=== PATIENT | female | born 1970 | race Caucasian/White ===

== ENCOUNTER 2024-06-15 14:23 | Outpatient (AMB) | payer BC, SELFPAY ==
[2024-06-15 14:43] VITALS: BP 141/88; PULSE 67; RESP 18; TEMP 35.8; O2SAT 96; BMI 43.8
--- NOTE | 2024-06-15 14:43 | PD.ORTHCLVIS ---
Vital signs 06/15/24 14:43 Height 1.63 m Height Method Stated Weight 115.751 kg Weight Measurement Method Standing Scale BMI 43.8 BP 141/88 H Blood Pressure Source Automatic Cuff Blood Pressure Location Right Upper Arm Position Sitting Respiration 18 Pulse 67 Pulse Source Monitor Temp 96.5 F L Temp Source Temporal Artery Scan Pulse Oximetry (%) 96 Oxygen Delivery Method Room Air Med/Allergies Allergies & Medications Allergies Penicillins Allergy (Unknown, Verified 06/15/24 14:46) amoxicillin Allergy (Verified 06/15/24 14:46) Medication Reconciliation levothyroxine 125 mcg capsule 125 mcg PO QDAY 06/15/24 [History Confirmed 06/15/24] meloxicam 7.5 mg tablet 7.5 mg PO QDAY #45 tabs 06/15/24 [Rx] Subjective Visit Visit for: new patient and knee (RIGHT) Immunization / Flu Flu Vaccine in the Last 12 Months: No Flu Vaccine Exclusion Criteria: No Exclusion Criteria History of Present Illness Chief complaint: RIGHT KNEE PAIN Date of injury / onset of symptoms: 1 YEAR Nusrat is a pleasant 53-year-old female with bilateral knee pain. She had a history of ACL repair over 16 years ago. She reports bilateral knee pain worse on the left actually. She has tried Anti-inflammatories. 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 Exam Exam Patient is in no acute distress and is cooperative with the examination today. Breathing is nonlabored. In no respiratory distress. Bilateral extremities were evaluated and demonstrates sensation intact to light touch. Palpable pedal pulses are present. No significant edema is present. Bilateral hips were examined. The patient has no pain with log roll of the hips. Internal rotation to 30 degrees and external rotation to 30 degrees is painless. Negative FADIR. The left knee was examined. The left knee is in [varus] alignment. Range of motion from [0-115] degrees. Knee is stable to varus and valgus as well as AP translation with <5mm. Patient has a [negative] McMurrays. There is [no] pain with patellofemoral compression and [no] crepitus noted. The knee is [tender] to palpation [medially]. The right knee was also examined. The right knee is in [varus] alignment. Range of motion from [0-120] degrees. Knee is stable to varus and valgus as well as AP translation with <5mm. Patient has a [negative] McMurrays. There is [no] pain with patellofemoral compression and [no] crepitus noted. The knee is [tender] to palpation [medially]. Bilateral knee x-rays demonstrate varus arthritis. It is of mild severity and is nonweightbearing Assessment and Plan Problem List (1) Degenerative arthritis of knee, bilateral: Status: Acute Plan: 53-year-old female with bilateral knee pain and likely bilateral knee arthritis. I would like to get weightbearing x-rays to better assess the severity. She has not had significant conservative treatment we can try anti-inflammatories or injections at the next visit. We will do a phone call to discuss the severity of her condition and different treatment options Office Procedures GNS Level of Care Nursing/Assessment Patient Status: Initial/New Patient Nursing Assessment/Reassesment: Medication Reconciliation, Update PMH in EMR and Vital Signs Coordination of Care: Complex Care and Chronic Disease 1-5, Education Complex Pt/Fam, Consent,records obtained, informed consent, 1 Ins Authorization, Lab and Imaging orders, Results/Orders obtained and Staff clarify orders New Patient Charge New Patient Point Assignment: 1124 New Patient Point Charge: RADIOLOGY SUPERVISOR Level 4 ([id number]) Past Medical History Past Medical History Have you ever been diagnosed with any of the following: Respiratory Problems Smoking: No Smoking Exposure: No
== END 2024-06-15 15:13 | disposition home or self-care (01) ==
LOC: HODSRG 14:23
PROVIDERS: PCP Family Medicine; Referring Provider Family Medicine; Supervising Provider Orthopaedic Surgery Adult Reconstructive Orthopaedic Surgery; Visit Provider Orthopaedic Surgery Adult Reconstructive Orthopaedic Surgery
DX: M17.0 Bilateral primary osteoarthritis of knee (principal); M25.562 Pain in left knee; M25.561 Pain in right knee
CPT/HCPCS: 99204; G0463

== ENCOUNTER 2024-07-02 15:24 | Outpatient (AMB) | payer BC, SELFPAY ==
--- NOTE | 2024-07-02 15:10 | PD.ORTHTELE ---
Med/Allergies Allergies & Medications Allergies Penicillins Allergy (Unknown, Verified 07/02/24 15:11) amoxicillin Allergy (Verified 07/02/24 15:11) Medication Reconciliation levothyroxine 125 mcg capsule 125 mcg PO QDAY 06/15/24 [History Confirmed 07/02/24] meloxicam 7.5 mg tablet 7.5 mg PO QDAY #45 tabs 06/15/24 [Rx Confirmed 07/02/24] Subjective Visit Visit for: follow up visit, knee and x-rays Immunization / Flu Flu Vaccine in the Last 12 Months: No Flu Vaccine Exclusion Criteria: No Exclusion Criteria History of Present Illness Chief complaint: TELEMED VISIT XRAYS Date of injury / onset of symptoms: 1 YEAR Nusrat is a pleasant 53-year-old female with bilateral knee pain. She had a history of ACL repair over 16 years ago. She reports bilateral knee pain worse on the left actually. She has tried Anti-inflammatories. 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 Assessment and Plan Problem List (1) Degenerative arthritis of knee, bilateral: Status: Acute Plan: 53-year-old female with bilateral knee pain and likely bilateral knee arthritis. I would like to get weightbearing x-rays to better assess the severity. She has not had significant conservative treatment. She has significant arthritis of both knees We thus discussed anti-inflammatories as well as cortisone injections. We would plan for cortisone injections at the next visit Office Procedures GNS Level of Care Nursing/Assessment Patient Status: Established Patient Nursing Assessment/Reassesment: Medication Reconciliation, Update PMH in EMR and Vital Signs Coordination of Care: Complex Care and Chronic Disease 1-5, Education Complex Pt/Fam, Consent,records obtained, informed consent, Results/Orders obtained and Staff clarify orders Established Patient Charge Established Patient Point Assignment: 95 Telehealth Telemed Phone/Video with patient at home & Dr,PA,APPLIED BEHAVIOR SCIENCE SPECIALIST: Yes
== END 2024-07-02 15:30 | disposition home or self-care (01) ==
LOC: HODSRG 15:24
PROVIDERS: PCP Family Medicine; Referring Provider Family Medicine; Supervising Provider Orthopaedic Surgery Adult Reconstructive Orthopaedic Surgery; Visit Provider Orthopaedic Surgery Adult Reconstructive Orthopaedic Surgery
DX: M17.0 Bilateral primary osteoarthritis of knee (principal); M25.562 Pain in left knee; M25.561 Pain in right knee
CPT/HCPCS: 99212; G0463

== ENCOUNTER 2024-07-13 14:54 | Outpatient (AMB) | payer BC, SELFPAY ==
[2024-07-13 15:22] VITALS: BP 140/82; PULSE 95; RESP 18; TEMP 36.3; O2SAT 93; BMI 43.0
--- NOTE | 2024-07-13 15:22 | PD.ORTHCLVIS ---
Vital signs 07/13/24 15:22 Height 1.63 m Height Method Stated Weight 114.362 kg Weight Measurement Method Standing Scale BMI 43.0 BP 140/82 H Blood Pressure Source Automatic Cuff Blood Pressure Location Left Upper Arm Position Sitting Respiration 18 Pulse 95 Pulse Source Monitor Temp 97.4 F Temp Source Temporal Artery Scan Pulse Oximetry (%) 93 L Oxygen Delivery Method Room Air Med/Allergies Allergies & Medications Allergies Penicillins Allergy (Unknown, Verified 07/02/24 15:11) amoxicillin Allergy (Verified 07/02/24 15:11) Subjective Visit Visit for: follow up visit, knee and injections Immunization / Flu Flu Vaccine in the Last 12 Months: No Flu Vaccine Exclusion Criteria: Refused by Patient History of Present Illness Chief complaint: TELEMED VISIT XRAYS Date of injury / onset of symptoms: 1 YEAR Nusrat is a pleasant 53-year-old female with bilateral knee pain. She had a history of ACL repair over 16 years ago. She reports bilateral knee pain worse on the left actually. She has tried Anti-inflammatories. 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 Exam Exam Patient is in no acute distress and is cooperative with the examination today. Breathing is nonlabored. In no respiratory distress. Bilateral extremities were evaluated and demonstrates sensation intact to light touch. Palpable pedal pulses are present. No significant edema is present. Bilateral hips were examined. The patient has no pain with log roll of the hips. Internal rotation to 30 degrees and external rotation to 30 degrees is painless. Negative FADIR. The left knee was examined. The left knee is in [varus] alignment. Range of motion from [0-115] degrees. Knee is stable to varus and valgus as well as AP translation with <5mm. Patient has a [negative] McMurrays. There is [no] pain with patellofemoral compression and [no] crepitus noted. The knee is [tender] to palpation [medially]. The right knee was also examined. The right knee is in [varus] alignment. Range of motion from [0-120] degrees. Knee is stable to varus and valgus as well as AP translation with <5mm. Patient has a [negative] McMurrays. There is [no] pain with patellofemoral compression and [no] crepitus noted. The knee is [tender] to palpation [medially]. Bilateral knee x-rays demonstrate varus arthritis. It is of mild severity and is nonweightbearing Assessment and Plan Problem List (1) Degenerative arthritis of knee, bilateral: Status: Acute Plan: 53-year-old female with bilateral knee pain and likely bilateral knee arthritis. I would like to get weightbearing x-rays to better assess the severity. She has not had significant conservative treatment. She has significant arthritis of both knees Recommend knee cortisone injections as patient would like to proceed with conservative treatment at this time. The risks and benefits of the procedure were reviewed with the patient and patient gave verbal consent to continue with the procedure. Procedure: performed by Dr. García Using sterile technique the Bilateral knees were thoroughly prepped with alcohol, and approximately 1 cc of Kenalog 40 mg/mL and 4 cc of 1% lidocaine was injected into each knee without resistance into the medial tibial femoral joint space. The patient tolerated the procedure. Office Procedures GNS Level of Care Nursing/Assessment Patient Status: Established Patient Nursing Assessment/Reassesment: Medication Reconciliation, Update PMH in EMR and Vital Signs Coordination of Care: Complex Care and Chronic Disease 1-5, Education Complex Pt/Fam, Consent,records obtained, informed consent, Results/Orders obtained and Staff clarify orders Established Patient Charge Established Patient Point Assignment: 95 Established Patient Point Charge: EP Level 3 (80-115) Surgical Proc/IM SQ injection Major Surgical Procedure: Yes (knee injection) Medication Given Medication Given Medication Given: Yes Documented Dose Given: 8 Route: Infiitration Medication Given Medication Given Medication Given: Yes Documented Dose Given: 2 Route: Infiitration Office Meds Xylocaine 10 mg/mL (1 %) injection solution Performing Provider: Dao García MD Performing Location: [facility] Administered by: Dao García MD on 07/13/24 15:36 Dose Route Admin Location Dispensed Lot Number Expiration Date [facility] Horticultural Farmworker 40 mL Infiltration 40 mL [id number] [employer] triamcinolone acetonide 40 mg/mL suspension for injection Performing Provider: Dao García MD Performing Location: [facility] Administered by: Dao García MD on 07/13/24 15:36 Dose Route Admin Location Dispensed Lot Number Expiration Date [facility] Horticultural Farmworker 80 mg intra-articular 2 mL [id number] [employer] Past Medical History Past Medical History Have you ever been diagnosed with any of the following: Respiratory Problems Smoking: No Smoking Exposure: No
== END 2024-07-13 15:43 | disposition home or self-care (01) ==
LOC: HODSRG 14:54
PROVIDERS: PCP Family Medicine; Referring Provider Family Medicine; Supervising Provider Orthopaedic Surgery Adult Reconstructive Orthopaedic Surgery; Visit Provider Orthopaedic Surgery Adult Reconstructive Orthopaedic Surgery
DX: M17.0 Bilateral primary osteoarthritis of knee (principal); M25.562 Pain in left knee; M25.561 Pain in right knee
CPT/HCPCS: 20610; 99213; J3301; J3490; G0463

== ENCOUNTER 2025-06-14 12:55 | Outpatient (AMB) | payer BC, SELFPAY ==
--- NOTE | 2025-06-14 13:18 | ORTHONT_ITS ---
Vital signs 06/14/25 13:19 Height 1.63 m Height Method Stated Weight 116.375 kg Weight Measurement Method Standing Scale BMI 43.8 BP 134/88 H Blood Pressure Source Automatic Cuff Blood Pressure Location Left Upper Arm Position Sitting Respiration 19 Pulse 73 Pulse Source Monitor Temp 98.0 F Temp Source Temporal Artery Scan Pulse Oximetry (%) 96 Oxygen Delivery Method Room Air Med/Allergies Allergies & Medications Allergies Penicillins Allergy (Unknown, Verified 06/14/25 13:19) amoxicillin Allergy (Verified 06/14/25 13:19) Medication Reconciliation levothyroxine 125 mcg capsule 125 mcg PO QDAY 06/15/24 [History Confirmed 06/14/25] meloxicam 7.5 mg tablet 7.5 mg PO QDAY #45 tabs 06/15/24 [Rx Confirmed 06/14/25] Exam Exam Patient is in no acute distress and is cooperative with the examination today. Breathing is nonlabored. In no respiratory distress. Bilateral extremities were evaluated and demonstrates sensation intact to light touch. Palpable pedal pulses are present. No significant edema is present. Bilateral hips were examined. The patient has no pain with log roll of the hips. Internal rotation to 30 degrees and external rotation to 30 degrees is painless. Negative FADIR. The left knee was examined. The left knee is in [varus] alignment. Range of motion from [0-115] degrees. Knee is stable to varus and valgus as well as AP translation with <5mm. Patient has a [negative] McMurrays. There is [no] pain with patellofemoral compression and [no] crepitus noted. The knee is [tender] to palpation [medially]. The right knee was also examined. The right knee is in [varus] alignment. Range of motion from [0-120] degrees. Knee is stable to varus and valgus as well as AP translation with <5mm. Patient has a [negative] McMurrays. There is [no] pain with patellofemoral compression and [no] crepitus noted. The knee is [tender] to palpation [medially]. Bilateral knee x-rays demonstrate varus arthritis. It is of mild severity and is nonweightbearing Assessment and Plan Problem List (1) Degenerative arthritis of knee, bilateral: Status: Acute Plan: 53-year-old female with bilateral knee pain and likely bilateral knee arthritis. Recommend knee cortisone injection as patient would like to proceed with conservative treatment at this time. The risks and benefits of the procedure were reviewed with the patient and patient gave verbal consent to continue with the procedure. Procedure: performed by Dr. García Using sterile technique the Right knee was thoroughly prepped with alcohol, and approximately 1 cc of Depo-Medrol 80mg/mL and 4 cc of 0.2% ropivacaine was injected without resistance into the medial tibial femoral joint space. The patient tolerated the procedure. Recommend knee cortisone injection as patient would like to proceed with conservative treatment at this time. The risks and benefits of the procedure were reviewed with the patient and patient gave verbal consent to continue with the procedure. Procedure: performed by Dr. García Using sterile technique the leftknee was thoroughly prepped with alcohol, and approximately 1 cc of Depo- Medrol 80mg/mL and 4 cc of 0.2% ropivacaine was injected without resistance into the medial tibial femoral joint space. The patient tolerated the procedure. Office Procedures GNS Level of Care Nursing/Assessment Patient Status: Established Patient Nursing Assessment/Reassesment: Medication Reconciliation, Update PMH in EMR and Vital Signs Coordination of Care: Complex Care and Chronic Disease 1-5, Education Complex Pt/Fam, Consent,records obtained, informed consent, Results/Orders obtained and Staff clarify orders Established Patient Charge Established Patient Point Assignment: 95 Established Patient Point Charge: EP Level 3 (80-115) Surgical Proc/IM SQ injection Minor Surgical Procedure: Yes (KNEE INJECTION ) Medication Given Medication Given Medication Given: Yes Documented Dose Given: 2 Route: Infiitration Medication Given Medication Given Medication Given: Yes Documented Dose Given: 8 Route: Infiitration Office Meds methylprednisolone acetate 80 mg/mL suspension for injection Performing Provider: Dao García MD Performing Location: [facility] Administered by: Dao García MD on 06/14/25 14:10 Dose Route Admin Location Dispensed Lot Number Expiration Date Pack age [facility] Violin Repairer 160 mg intra-articular KNEE 2 mL [id number] 02/14/27 [address]-8 [id number] [employer] ropivacaine (PF) 2 mg/mL (0.2 %) injection solution Performing Provider: Dao García MD Performing Location: [facility] Administered by: Dao García MD on 06/14/25 14:10 Dose Route Admin Location Dispensed Lot Number Expiration Date Pack age [employer] [facility] Violin Repairer 40 mL Infiltration KNEE 40 mL [id number] 09/17/27 83061-552-13 [id number] [facility] Intake Visit Data Collection New Patient or Established: Established Patient (seen at [facility] within 3 years) Reason for Visit:: FU KNEE INJ BL Seen by Clinical Staff ONLY (RN/MA): No PCP or OBGYN visit in last 3 months: Yes Hx Now: No Do You Feel Safe at Home: Yes Authorities Contacted: N/A Questionairres Past Medical History Past Medical History Have you ever been diagnosed with any of the following: Respiratory Problems Smoking: No Smoking Exposure: No Subjective Visit Visit for: follow up visit, knee (BILATERAL) and injections Immunization / Flu Flu Vaccine in the Last 12 Months: No Flu Vaccine Exclusion Criteria: No Exclusion Criteria History of Present Illness Chief complaint: 3MTH BL KNEE INJ FU Nusrat is a pleasant 53-year-old female with bilateral knee pain. She had a history of ACL repair over 16 years ago. She reports bilateral knee pain worse on the left actually. She has tried Anti-inflammatories. 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 Personal History Occupation: NONE Pain Pain level (0-10): 7 Pain duration: ON AND OFF Pain location: inside (medial) and anterior Pain quality: dull and aching Pain timing: increases with activity Associated signs & symptoms: none Ambulatory data Ambulatory device: none Treatments Number of previous injections: 2 Improvement with previous injections: Yes Improvement with PT: No Improvement with NSAIDS: no Review of Systems Review of Systems: All systems negative unless otherwise noted in HPI.
[2025-06-14 13:19] VITALS: BP 134/88; PULSE 73; RESP 19; TEMP 36.7; O2SAT 96; BMI 43.8
== END 2025-06-14 13:27 | disposition home or self-care (01) ==
LOC: HODSRG 12:55
PROVIDERS: PCP Family Medicine; Referring Provider Family Medicine; Supervising Provider Orthopaedic Surgery Adult Reconstructive Orthopaedic Surgery; Visit Provider Orthopaedic Surgery Adult Reconstructive Orthopaedic Surgery
DX: M25.562 Pain in left knee (principal); M25.561 Pain in right knee; M17.0 Bilateral primary osteoarthritis of knee
CPT/HCPCS: 20610; 99213; J1010; J2795; G0463

== ENCOUNTER 2025-07-11 08:05 | Day surgery (SDC) | payer BC, SELFPAY ==
--- NOTE | 2025-07-08 14:03 | EKG_ITS ---
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 : [id number] Requested By: Maximiliano Villarreal Order Number: [id number] Reading MD: Maximiliano Villarreal Measurements Intervals [place] Rate: 75 P: 29 [place]: 160 QRS: -27 QRSD: 93 T: 63 QT: 363 QTc: 408 Interpretive Statements SINUS RHYTHM LOW QRS VOLTAGE IN PRECORDIAL LEADS [QRS DEFLECTION < 1.0 mV IN CHEST LEADS] PATTERN CONSISTENT WITH PULMONARY DISEASE INCOMPLETE RIGHT BUNDLE BRANCH BLOCK [90+ ms QRS DURATION, TERMINAL R IN V1/V2, 40+ ms S IN I/aVL/V4/V5/V6] PROBABLE SEPTAL MYOCARDIAL INFARCTION , OF INDETERMINATE AGE [35 ms Q WAVE IN V1/V2] No previous ECG available for comparison /[id number]/[email or web address]/[id number].pdf
[2025-07-08 14:13] VITALS: BMI 42.9
[2025-07-08 17:38] LABS: HCG Qualitative,Urine Negative
[2025-07-08 17:44] LABS: Alanine Aminotransferase 22 U/L (10-49); Albumin, Serum 4.7 gm/dL (3.5-5.0); Albumin/Globulin Ratio 1.8 (1.2-2.2); Alkaline Phosphatase 119 U/L (46-116); Anion Gap 9 (7-16); Aspartate Amino Transferase 22 U/L (0-34); BUN/Creatinine Ratio 21 Ratio (12-20); Bilirubin,Total 0.4 mg/dL (0.3-1.2); Blood Urea Nitrogen 17 mg/dL (9-23); Calcium 9.2 mg/dL (8.3-10.6); Calcium (Corrected) 9.2 mg/dL (8.5-10.1); Carbon Dioxide 29.3 mMol/L (20.0-31.0); Chloride 104 mMol/L (98-107); Creatinine (Component) 0.8 mg/dL (0.6-1.3); Estimated Creatinine Clearance 98.1 mL/min (>60); Globulin 2.6 gm/dL (2.3-3.5); Glucose 101 mg/dL (74-106); Osmolality,Calculated 284 (275-295); Potassium 4.2 mMol/L (3.4-5.1); Sodium 142 mMol/L (136-145); Total Protein 7.3 gm/dL (5.7-8.2); eGFR > 60 See Note
[2025-07-11 08:40] VITALS: BP 156/101; PULSE 69; RESP 18; TEMP 36.2; O2SAT 96
[2025-07-11 08:46] VITALS: BMI 43.7
[2025-07-11] MEDS: RINGERS LACTATED 500 ML 500 ML 20 ML IV (10:12)
[2025-07-11 10:30] VITALS: BP 115/73; PULSE 63; RESP 17; TEMP 37.1; O2SAT 95
[2025-07-11 10:40] VITALS: BP 130/73; PULSE 68; RESP 15; O2SAT 96
[2025-07-11 10:50] VITALS: BP 132/73; PULSE 62; RESP 15; O2SAT 97
[2025-07-11 11:00] VITALS: BP 146/72; PULSE 65; RESP 17; O2SAT 100
== END 2025-07-11 11:23 | disposition home or self-care (01) ==
PROVIDERS: Anesthesiology; PCP Family Medicine; Referring Provider Specialist; Visit Provider Specialist
PROC: 0DBE8ZX Excision of Large Intestine, Via Natural or Artificial Opening Endoscopic, Diagnostic (ICD-10-PCS; CPT 45380; principal; 2025-07-11 10:45)
PROC: (CPT 43239; 2025-07-11 10:45)
DX: Z12.11 Encounter for screening for malignant neoplasm of colon (principal); K64.1 Second degree hemorrhoids; K57.30 Diverticulosis of large intestine without perforation or abscess without bleeding; Z01.810 Encounter for preprocedural cardiovascular examination; E03.9 Hypothyroidism, unspecified; I10 Essential (primary) hypertension; Z79.899 Other long term (current) drug therapy; Z79.890 Hormone replacement therapy
CPT/HCPCS: 45378; 36415; 80053; 81025; 93005; A4649; J7120